=== PATIENT | female | born 1965 | race Two or more races ===

== ENCOUNTER 2018-08-03 07:09 | Inpatient (IN) | payer OTHER ==
[~2018-08-03] VITALS: Ht 160 cm; Wt 104.3 kg
--- NOTE | 2018-08-03 07:00 | NUR ---
Admitted from home, awake, alert x4. S/P TKA on 07/30 by Araceli Stewart. Surgical dressing intact over right knee. With tolerable knee pain. Not in any form of distress. Slovenian speaking, cooperative, compliant with medications and treatment. Routine admission care done. Admission orderers obtained fro dr. Martinez.
[2018-08-03 08:00] VITALS: BP 125/51
[2018-08-03] MEDS ORDERED: MAGNESIUM HYDROXIDE 30 ML LIQUID UDC PO PRN (08:00)
[2018-08-03] MEDS ORDERED: Z GUARD REMEDY PASTE 57 GM TUBE TOP PRN (08:00)
[2018-08-03] MEDS ORDERED: ASPI-612 PO (09:25)
[2018-08-03] MEDS ORDERED: SIMV10TA6 PO (09:25)
[2018-08-03] MEDS ORDERED: GLYB5TAB7 PO (09:25)
[2018-08-03] MEDS ORDERED: BACL10TA PO (09:25)
[2018-08-03] MEDS ORDERED: QUIN20TA18 PO (09:25)
[2018-08-03] MEDS ORDERED: OXYB5TAB11 PO (09:25)
[2018-08-03] MEDS ORDERED: HYDR25TA4 PO (09:25)
--- NOTE | 2018-08-03 09:45 | NUR ---
Entered home medications. Medication reconciliation requested from [facility]
[2018-08-03] MEDS ORDERED: DEXTROSE 50% 50 ML DISP.SYRIN IV PRN (11:15)
[2018-08-03] MEDS ORDERED: OXYBUTYNIN CHLORIDE 5 MG TABLET PO PRN (11:15)
[2018-08-03] MEDS ORDERED: BACLOFEN 10 MG TABLET PO PRN (11:15)
[2018-08-03] MEDS: HYDROCODONE/APAP 5-325MG TABLET PO PRN (11:36)
--- NOTE | 2018-08-03 11:53 | NUR ---
Seen and examined by [facility] INST[employer] TECHNICIAN. Medication reconciliation done. Lisinopril, Accu check ACHS and mild sliding scale for insulin added.
[2018-08-03] MEDS: BLOOD SUGAR DIAGNOSTIC 1 EACH STRIP VI SCH ×3 (12:11→21:14)
[2018-08-03] MEDS: INSULIN REGULAR, HUMAN 300 UNIT/3 ML VIAL SQ PRN ×3 (12:12→21:12)
[2018-08-03] MEDS: LISINOPRIL 10 MG TABLET PO SCH (12:23)
--- NOTE | 2018-08-03 13:54 | NUR ---
INTERDISCIPLINARY TEAM CONFERENCE
[2018-08-03] MEDS: HYDROCODONE/APAP 10-325 MG TABLET PO PRN (15:25)
[2018-08-03] MEDS: ASPIRIN 325 MG TABLET PO SCH (16:38)
--- NOTE | 2018-08-03 16:43 | NUR ---
Patient refused Insulin shots, patient claims she is afraid it may plunge down since her BS was not really high. Discussed risks and benefits but patient still refused.
[2018-08-03 17:00] VITALS: BP 116/55
[2018-08-03 20:33] VITALS: BP 125/54
[2018-08-03] MEDS: OXYBUTYNIN CHLORIDE 5 MG TABLET PO SCH (21:06)
[2018-08-04 05:32] VITALS: BP 102/52
--- NOTE | 2018-08-04 05:55 | NUR ---
awake alert and oriented. needs attended. no acute distress noted. right knee dressing clean dry and intact. denies any pain nor any discomfort. VSS. Kept comfortable.
[2018-08-04] MEDS: BLOOD SUGAR DIAGNOSTIC 1 EACH STRIP VI SCH ×4 (06:10→20:49)
[2018-08-04 06:29] LABS: BASOPHILS % (AUTO) 0.6 % (0.0-2.0); EOSINOPHILS # (AUTO) 0.5 K/uL (0.0-0.7); EOSINOPHILS % (AUTO) 6.1 % (0.0-7.0); HEMATOCRIT 32.4 % (31.2-41.9); HEMOGLOBIN 11.3 g/dL (10.9-14.3); LYMPHOCYTES # (AUTO) 1.9 K/uL (20.0-40.0); LYMPHOCYTES % (AUTO) 22.4 % (20.5-51.5); MEAN CORPUSCULAR HEMOGLOBIN 30.5 uug (24.7-32.8); MEAN CORPUSCULAR HGB CONC 35 g/dL (32.3-35.6); MEAN CORPUSCULAR VOLUME 87.9 fL (75.5-95.3); MONOCYTES # (AUTO) 0.7 K/uL (2.0-10.0); MONOCYTES % (AUTO) 8.8 % (0.0-11.0); NEUTROPHILS # (AUTO) 5.2 K/uL (1.8-8.9); NEUTROPHILS % (AUTO) 62.1 % (38.5-71.5); PLATELET COUNT (AUTO) 273 K/uL (179-408); RED BLOOD CELL COUNT(AUTO) 3.69 MIL/uL (3.63-4.92); WHITE BLOOD COUNT (AUTO) 8.4 K/uL (3.8-11.8)
[2018-08-04 06:53] LABS: CREATININE 0.6 mg/dL (0.6-1.3); POTASSIUM 3.8 mmol/L (3.5-5.1)
[2018-08-04] MEDS: HYDROCHLOROTHIAZIDE 25 MG TABLET PO SCH (08:49)
[2018-08-04] MEDS: ASPIRIN 325 MG TABLET PO SCH ×2 (08:49→16:35)
[2018-08-04] MEDS: LISINOPRIL 10 MG TABLET PO SCH (08:49)
[2018-08-04] MEDS: OXYBUTYNIN CHLORIDE 5 MG TABLET PO SCH ×2 (08:49→20:45)
[2018-08-04] MEDS: HYDROCODONE/APAP 10-325 MG TABLET PO PRN ×2 (08:50→20:46)
[2018-08-04] MEDS: INSULIN REGULAR, HUMAN 300 UNIT/3 ML VIAL SQ PRN ×4 (08:59→20:48)
[2018-08-04] MEDS ORDERED: OXYBUTYNIN CHLORIDE 5 MG TABLET PO SCH (09:00)
--- NOTE | 2018-08-04 10:20 | NUR ---
Received patient awake in bed. hungarian speaking in stable condition. Continue therapy for unsteady gait and ambulation. Complaint of pain/discomfort. [place] 10-325mg PRN given prior to therapy. tolerated well. not in distress. will continue monitor
--- NOTE | 2018-08-04 10:40 | NUR ---
Patient abscess with small discharge, no foul smell in left upper back noted. MD Griffith notified, ordered wound consult. will continue monitor
[2018-08-04] MEDS ORDERED: MAGNESIUM HYDROXIDE 30 ML LIQUID UDC PO PRN (16:45)
--- NOTE | 2018-08-04 17:29 | NUR ---
Patient seen and examined by MD Hicks regarding abscess left upper back. will comeback tomorrow for removal as per order. will endorse
[2018-08-04 18:42] VITALS: BP 107/51
[2018-08-04 20:00] VITALS: BP 110/56
--- NOTE | 2018-08-04 20:12 | NUR ---
Patient received at bed. AAO X4. Able to make needs known. Verbally responsive appropriately. No sign of acute distress or SOB was noted. On room air, O2 sat 97%. All safety measures maintained. Bed is on low position, brake and alarm are on. Call light and personal belongings within reach. Continue to monitor.
[2018-08-04] MEDS: SIMVASTATIN 10 MG TABLET PO SCH (20:45)
[2018-08-04] MEDS: SENNOSIDES 1 TABLET PO SCH (20:45)
--- NOTE | 2018-08-05 05:07 | NUR ---
End of shift note, Patient remained stable throughout the shift. No acute distress or SOB was noted. Pain assessed and reassessed after medication. Medication given as ordered. BS was checked at 2100, was 176, 3 units insulin for coverage based on sliding scale. All needs attended promptly. Stand by assisted her to the bathroom every time patient needed. Safety measures maintained. Keep her clean and comfortable. Bed in low position, alarm and brake on. Call light and personal belongings within reach. Continue to monitor and will endorse to day shift nurse.
[2018-08-05] MEDS: BLOOD SUGAR DIAGNOSTIC 1 EACH STRIP VI SCH ×4 (06:46→22:57)
[2018-08-05 06:50] VITALS: BP 115/52
[2018-08-05] MEDS: HYDROCODONE/APAP 10-325 MG TABLET PO PRN ×2 (09:30→22:54)
[2018-08-05] MEDS: ZINC SULFATE 220 MG CAPSULE PO SCH (09:31)
[2018-08-05] MEDS: LISINOPRIL 10 MG TABLET PO SCH (09:31)
[2018-08-05] MEDS: MULTIVIT, IRON, MIN NO. 8, FA TABLET PO SCH (09:32)
[2018-08-05] MEDS: ASPIRIN 325 MG TABLET PO SCH ×2 (09:32→17:28)
[2018-08-05] MEDS: OXYBUTYNIN CHLORIDE 5 MG TABLET PO SCH ×2 (09:33→22:44)
[2018-08-05] MEDS: ASCORBIC ACID 500 MG TABLET PO SCH (09:33)
[2018-08-05] MEDS: HYDROCHLOROTHIAZIDE 25 MG TABLET PO SCH (09:33)
[2018-08-05] MEDS ORDERED: SILVER NITRATE APPLICATOR STICK EACH TP ONE (16:30)
[2018-08-05] MEDS ORDERED: LIDOCAINE 1%-EPI 1:100,000 20 ML VIAL TP ONE (16:30)
--- NOTE | 2018-08-05 19:20 | NUR ---
Sleeping during initial rounds. No s/s of pain/discomforts. Safety measure and fall precaution maintained. Continue care as planned.
[2018-08-05 21:55] VITALS: BP 119/61
[2018-08-05] MEDS: SIMVASTATIN 10 MG TABLET PO SCH (22:43)
[2018-08-05] MEDS: SENNOSIDES 1 TABLET PO SCH (22:43)
--- NOTE | 2018-08-05 23:00 | NUR ---
Medicated for right knee incision pain as ordered nad needed. Will monitor.
--- NOTE | 2018-08-06 | NUR ---
Pain meds effective. Sleeping during rounds. Continue to monitor.
--- NOTE | 2018-08-06 05:32 | NUR ---
Shift End Report: Slept good. Medicated once for pain with relief. No further complaint presented. All needs attended and met. No fall/injury. No significant event reported. Continue care as planned. VS stable.
[2018-08-06 05:59] VITALS: BP 110/62
[2018-08-06] MEDS: BLOOD SUGAR DIAGNOSTIC 1 EACH STRIP VI SCH ×4 (06:51→21:25)
[2018-08-06 08:00] VITALS: BP 118/55
[2018-08-06] MEDS: HYDROCHLOROTHIAZIDE 25 MG TABLET PO SCH (09:31)
[2018-08-06] MEDS: ASPIRIN 325 MG TABLET PO SCH ×2 (09:31→16:19)
[2018-08-06] MEDS: OXYBUTYNIN CHLORIDE 5 MG TABLET PO SCH ×2 (09:31→21:18)
[2018-08-06] MEDS: LISINOPRIL 10 MG TABLET PO SCH (09:32)
[2018-08-06] MEDS: MULTIVIT, IRON, MIN NO. 8, FA TABLET PO SCH (09:33)
[2018-08-06] MEDS: ZINC SULFATE 220 MG CAPSULE PO SCH (09:33)
[2018-08-06] MEDS: ASCORBIC ACID 500 MG TABLET PO SCH (09:33)
--- NOTE | 2018-08-06 10:04 | NUR ---
Received pt. in bed lying comfortable. A/OX4 with capacity to make decision and able to make her needs know. No s/sx of acute distress noted. No new skin condition noted, RT. knee surgical dressing C/D/I. No s/sx of hypo or hyperglycemia. Speaks Faroese but understand [place]. All due AM medication given as ordered and tolerated well. Encouraged pt. use of CPM. All safety and fall precaution in placed. Call light and all frequently used items in placed.
[2018-08-06] MEDS: INSULIN REGULAR, HUMAN 300 UNIT/3 ML VIAL SQ PRN ×2 (11:13→16:32)
[2018-08-06] MEDS: HYDROCODONE/APAP 5-325MG TABLET PO PRN (12:41)
--- NOTE | 2018-08-06 14:08 | NUR ---
INTERDISCIPLINARY TEAM CONFERENCE
[2018-08-06 15:56] VITALS: BP 106/44
--- NOTE | 2018-08-06 19:23 | NUR ---
End of shift note: No significant changed this shift. Pt. remain a/ox4, denies CP or SOB. Performed wound packing on Lt. upper back, no drainage, slight redness around incision, covered with DD, pt. tolerated procedure well. Rt knee surgical incision covered with DD and C/D/I. No s/sx of hypo or hyperglycemia, covered with insulin as ordered. All due medications administered and tolerated well. No bleeding noted. Safety measures in placed. Call light and all frequently used items in reach. Will endorse to oncoming shift accordingly.
[2018-08-06 20:00] VITALS: BP 123/59
--- NOTE | 2018-08-06 20:05 | NUR ---
Patient received at bed. AAO X4. Able to make needs known. Verbally responsive appropriately. No sign of acute distress or SOB was noted. On room air, O2 sat 98%. V/S was checked and brief assessment was done. All safety measures maintained. Bed is on low position, brake and alarm are on. Call light and personal belongings within reach. Continue to monitor
[2018-08-06] MEDS: SIMVASTATIN 10 MG TABLET PO SCH (21:18)
[2018-08-06] MEDS: HYDROCODONE/APAP 10-325 MG TABLET PO PRN (21:19)
[2018-08-06] MEDS: SENNOSIDES 1 TABLET PO SCH (21:19)
[2018-08-07] MEDS: BLOOD SUGAR DIAGNOSTIC 1 EACH STRIP VI SCH ×4 (06:38→20:38)
[2018-08-07 06:47] VITALS: BP 107/54
--- NOTE | 2018-08-07 07:01 | NUR ---
End of shift note, Patient remained stable throughout the shift. No acute distress or SOB was noted. Pain assessed and reassessed after pain medication. Medication given as ordered. BS was checked at 2100, was 123, no coverage based on sliding scale. Morning BS was 138. Ice bag was provided for pain. CPM was applied.All needs attended promptly. Stand by assisted her to the bathroom every time patient needed. Safety measures maintained. Keep her clean and comfortable. Bed in low position, alarm and brake on. Call light and personal belongings within reach. Continue to monitor and will endorse to day shift nurse.
[2018-08-07] MEDS: INSULIN REGULAR, HUMAN 300 UNIT/3 ML VIAL SQ PRN ×2 (08:07→20:39)
[2018-08-07] MEDS: ZINC SULFATE 220 MG CAPSULE PO SCH (08:12)
[2018-08-07] MEDS: MULTIVIT, IRON, MIN NO. 8, FA TABLET PO SCH (08:12)
[2018-08-07] MEDS: ASCORBIC ACID 500 MG TABLET PO SCH (08:12)
[2018-08-07] MEDS: ASPIRIN 325 MG TABLET PO SCH ×2 (08:12→16:17)
[2018-08-07] MEDS: HYDROCHLOROTHIAZIDE 25 MG TABLET PO SCH (08:13)
[2018-08-07] MEDS: OXYBUTYNIN CHLORIDE 5 MG TABLET PO SCH ×2 (08:14→20:31)
[2018-08-07] MEDS: LISINOPRIL 10 MG TABLET PO SCH (08:14)
--- NOTE | 2018-08-07 10:08 | NUR ---
SBAR report received, board updated. Pt assessed, no acute distress or SOB. Pt denies pain at this time, CPM removed. Pt compliant with all routine morning medication administration. Cooperative with discussing therapies later today. All comfort and safety needs met. Bed in locked and lowest position. Call light within reach. Will continue to monitor.
[2018-08-07] MEDS: HYDROCODONE/APAP 5-325MG TABLET PO PRN (16:17)
--- NOTE | 2018-08-07 19:10 | NUR ---
In bed during initial rounds, awake, denies any pain/discomforts, not in distress. Upper back dressing dry and intact with old brown stain. Right knee dressing clean, dry and intact. Still with slight limited mobility noted on affected area. Safety measure and fall precaution maintained. Continue care as planned.
[2018-08-07] MEDS: SENNOSIDES 1 TABLET PO SCH (20:31)
[2018-08-07] MEDS: SIMVASTATIN 10 MG TABLET PO SCH (20:31)
[2018-08-07 20:40] VITALS: BP 101/54
[2018-08-08 05:33] VITALS: BP 106/55
[2018-08-08] MEDS: BLOOD SUGAR DIAGNOSTIC 1 EACH STRIP VI SCH ×4 (05:51→20:31)
--- NOTE | 2018-08-08 06:49 | NUR ---
Shift end report: VS stable. Slept good. No complaint of pain/discomforts presented. No fall/injury. All needs attended and met. Safety measure and fall precaution maintained Continue care as planned.
[2018-08-08] MEDS: HYDROCHLOROTHIAZIDE 25 MG TABLET PO SCH (09:00)
[2018-08-08] MEDS: LISINOPRIL 10 MG TABLET PO SCH (09:00)
[2018-08-08] MEDS: MULTIVIT, IRON, MIN NO. 8, FA TABLET PO SCH (09:12)
[2018-08-08] MEDS: ASPIRIN 325 MG TABLET PO SCH ×2 (09:12→16:39)
[2018-08-08] MEDS: ASCORBIC ACID 500 MG TABLET PO SCH (09:12)
[2018-08-08] MEDS: ZINC SULFATE 220 MG CAPSULE PO SCH (09:12)
[2018-08-08] MEDS: OXYBUTYNIN CHLORIDE 5 MG TABLET PO SCH ×2 (09:13→20:31)
[2018-08-08] MEDS: HYDROCODONE/APAP 5-325MG TABLET PO PRN ×2 (09:15→20:32)
--- NOTE | 2018-08-08 11:11 | NUR ---
Received patient awake in bed in stable condition. Continue on pain management. complaint of pain/discomfort. complaint of pain scale 6 out of 10. norco 5-325mg PRN given at 9am. not in distress. will continue monitor
[2018-08-08 16:47] VITALS: BP_SYST 117; BP_SYST 128; BP_DIAS 41; BP_DIAS 47
--- NOTE | 2018-08-08 19:50 | NUR ---
Received pt in bed, AAO x 4 watching television. No acute distress noted. Beninese speaking but able to communicate basic needs in albanian. Verbally responsive and able to make needs known. C/O pain R knee 7/10 pain scale. All safety measures and fall precautions maintained. Call light and all personal belongings within reach. Will continue to monitor.
[2018-08-08] MEDS: SENNOSIDES 1 TABLET PO SCH (20:31)
[2018-08-08] MEDS: SIMVASTATIN 10 MG TABLET PO SCH (20:31)
--- NOTE | 2018-08-08 20:35 | NUR ---
PRN [place] given as ordered and well tolerated. Safety maintained. Call light within reach. Will continue to monitor.
[2018-08-08] MEDS: INSULIN REGULAR, HUMAN 300 UNIT/3 ML VIAL SQ PRN (20:36)
[2018-08-08 20:46] VITALS: BP 130/61
[2018-08-09] MEDS: HYDROCODONE/APAP 5-325MG TABLET PO PRN ×3 (03:42→17:35)
[2018-08-09] MEDS: BLOOD SUGAR DIAGNOSTIC 1 EACH STRIP VI SCH ×4 (06:31→21:08)
[2018-08-09 07:00] VITALS: BP 130/64
[2018-08-09] MEDS: MULTIVIT, IRON, MIN NO. 8, FA TABLET PO SCH (08:42)
[2018-08-09] MEDS: ASPIRIN 325 MG TABLET PO SCH ×2 (08:42→16:45)
[2018-08-09] MEDS: HYDROCHLOROTHIAZIDE 25 MG TABLET PO SCH (08:43)
[2018-08-09] MEDS: ASCORBIC ACID 500 MG TABLET PO SCH (08:43)
[2018-08-09] MEDS: ZINC SULFATE 220 MG CAPSULE PO SCH (08:43)
[2018-08-09] MEDS: OXYBUTYNIN CHLORIDE 5 MG TABLET PO SCH ×2 (08:43→21:09)
[2018-08-09] MEDS: INSULIN REGULAR, HUMAN 300 UNIT/3 ML VIAL SQ PRN (08:46)
[2018-08-09] MEDS: LISINOPRIL 10 MG TABLET PO SCH (08:52)
--- NOTE | 2018-08-09 13:52 | NUR ---
SBAR report received, board updated. VSS. Pt assessed, no acute distress. Pt compliant with morning medication administration including [place] for 4/10 pain. Pt cooperative with therapies as offered. Personal items and call light placed within reach. Wound care provided as ordered. Bed in locked and lowest position, with side rails up x2. Bed alarm on. All comfort and safety measures implemented. Will continue to monitor.
[2018-08-09 17:24] VITALS: BP 118/55
--- NOTE | 2018-08-09 19:47 | NUR ---
Received pt in bed, AAO x 4 watching television. No acute distress noted. Verbally responsive and able to make needs known. Denies pain or discomfort at this time. All safety measures and fall precautions maintained. Call light and all personal belongings within reach. Will continue to monitor.
[2018-08-09 20:25] VITALS: BP 113/51
[2018-08-09] MEDS: SENNOSIDES 1 TABLET PO SCH (21:08)
[2018-08-09] MEDS: SIMVASTATIN 10 MG TABLET PO SCH (21:09)
[2018-08-10] MEDS: HYDROCODONE/APAP 5-325MG TABLET PO PRN ×3 (03:16→13:50)
[2018-08-10 06:08] VITALS: BP 103/54
[2018-08-10] MEDS: BLOOD SUGAR DIAGNOSTIC 1 EACH STRIP VI SCH ×2 (06:31→12:11)
[2018-08-10 08:03] VITALS: BP 116/57
--- NOTE | 2018-08-10 08:10 | NUR ---
Received patient, awake, alert x4. Not in any form of distress. Pain over right knee. Surgical dressing intact. S/P ID, surgical dressing intact over upper back. For possible discharge today.
[2018-08-10] MEDS: ASPIRIN 325 MG TABLET PO SCH (09:03)
[2018-08-10 09:04] VITALS: BP 116/57
[2018-08-10] MEDS: OXYBUTYNIN CHLORIDE 5 MG TABLET PO SCH (09:04)
[2018-08-10] MEDS: LISINOPRIL 10 MG TABLET PO SCH (09:04)
[2018-08-10] MEDS: HYDROCHLOROTHIAZIDE 25 MG TABLET PO SCH (09:04)
[2018-08-10] MEDS: ZINC SULFATE 220 MG CAPSULE PO SCH (09:04)
[2018-08-10] MEDS: ASCORBIC ACID 500 MG TABLET PO SCH (09:04)
[2018-08-10] MEDS: MULTIVIT, IRON, MIN NO. 8, FA TABLET PO SCH (09:04)
--- NOTE | 2018-08-10 09:21 | NUR ---
Up with physical therapy. Tolerating well. PRN [place] 5-325 given with pain over right knee rated at 6/10.
[2018-08-10] MEDS: INSULIN REGULAR, HUMAN 300 UNIT/3 ML VIAL SQ PRN (12:11)
--- NOTE | 2018-08-10 15:00 | NUR ---
Discharge to home per ambulance via gurney. Stable not in any from of distress. No pain noted. Pictures take and attached to chart. Instructed to take medications as prescribed. Instructed to follow up with Dr. Charles on 08/15/18 at 11am. Routine discharge care done. Order for discharge obtained from Dr. wick.
== END 2018-08-10 15:30 | disposition home health service (06) | DRG 560 ==
PROVIDERS: ADMIT Physical Medicine & Rehabilitation Pain Medicine; ATTEND Physical Medicine & Rehabilitation Pain Medicine
PROC: 0H96XZZ Drainage of Back Skin, External Approach (ICD-10-PCS; principal; 2018-08-05)
DX: Z47.1 Aftercare following joint replacement surgery (principal); E44.0 Moderate protein-calorie malnutrition; Z68.41 Body mass index [BMI] 40.0-44.9, adult; L02.212 Cutaneous abscess of back [any part, except buttock and flank]; Z96.651 Presence of right artificial knee joint; E66.01 Morbid (severe) obesity due to excess calories; E11.9 Type 2 diabetes mellitus without complications; I10 Essential (primary) hypertension; E78.5 Hyperlipidemia, unspecified; Z90.49 Acquired absence of other specified parts of digestive tract; L72.8 Other follicular cysts of the skin and subcutaneous tissue
CPT/HCPCS: 36415; 85025; 87070; 92523; 92526; 92610; 97110; 97112; 97116; 97530; 97535; A4663; J1815; J3490